=== PATIENT | female | born 1960 ===

== ENCOUNTER 2022-02-13 06:53 | Observation (INO) | payer OTHER ==
[2022-02-13] VITALS (24 sets, daily range): BP systolic 114–145; BP diastolic 68–86
[~2022-02-13] VITALS: Ht 157.5 cm; Wt 85.7 kg
[~2022-02-13 06:53] MED LIST: ASCO100031 PO; CEFAZOLIN SODIUM 1 GM VIAL IVP SCH; CEFAZOLIN SODIUM 2 GM VIAL IV ONE; CELE200 PO; DENO60DI SQ; LACTATED RINGERS 1000ML 1,000 ML IV SCH; LORA10TA7 PO; OMEG1CAP83 PO; ROSU10TA28 PO; TRANEXAMIC ACID 1000MG/10ML IV SCH; TRANEXAMIC ACID 1000MG/10ML TP ONE; k2 PO; tylenol PO
[2022-02-13] MEDS ORDERED: HYDROCODONE/ACETAMINOPHEN 5/325 MG TAB PO PRN (10:30)
[2022-02-13] MEDS: 0.9%NACL 1000ML 1,000 ML IV SCH ×2 (10:30→22:38)
[2022-02-13] MEDS ORDERED: MORPHINE 4 MG SYG IVP PRN (10:30)
[2022-02-13] MEDS ORDERED: ONDANSETRON 4MG INJ IVP PRN (10:30)
[2022-02-13] MEDS ORDERED: ACETAMINOPHEN 500 MG TABLET PO SCH (10:30)
[2022-02-13] MEDS ORDERED: NON-FORMULARY MEDICATION 1 EACH (Denosumab (Prolia) 60 MG) SQ SCH (10:30)
[2022-02-13] MEDS ORDERED: LIDOCAINE HCL-MPF 1% 2ML VIAL IV PRN (10:30)
[2022-02-13] MEDS ORDERED: KCL 20 MEQ ERTAB PO PRN (10:30)
[2022-02-13] MEDS ORDERED: POTASSIUM CHLORIDE 20MEQ/100ML 100 ML IV PRN (10:30)
[2022-02-13] MEDS ORDERED: FERROUS FUMARATE 324 MG TABLET PO PRN (10:30)
[2022-02-13] MEDS: PHARMACY COMMUNICATION MISC SCH ×8 (10:30→17:30)
[2022-02-13] MEDS ORDERED: POTASSIUM CHLORIDE 10% ELIXIR 20 MEQ/15 ML UDCUP PO PRN (10:30)
[2022-02-13] MEDS ORDERED: TRANEXAMIC ACID 1000MG/10ML ONE (10:43)
[2022-02-13] MEDS ORDERED: PROPOFOL 10 MG/ML 20ML VIAL IV ONE (11:20)
[2022-02-13] MEDS ORDERED: MIDAZOLAM HCL 1 MG/ML 2ML VIAL ONE (11:20)
[2022-02-13] MEDS ORDERED: LIDOCAINE PF 100MG/5ML (2%) SYRINGE 5ML ONE (11:20)
[2022-02-13] MEDS ORDERED: SUCCINYLCHOLINE CHLORIDE 20 MG/ML 10 ML VIAL ONE (11:20)
[2022-02-13] MEDS ORDERED: FENTANYL CITRATE PF 50 MCG/1 ML 2ML VIAL ONE ×2 (11:20→12:15)
[2022-02-13] MEDS ORDERED: ROCURONIUM 10MG/1ML SYR 10 MG/ML ML ONE (11:21)
[2022-02-13] MEDS ORDERED: ROPIVACAINE 0.5% 5MG/ML 30ML IJ ONE (11:29)
[2022-02-13] MEDS ORDERED: CEFAZOLIN SODIUM 2 GM VIAL IV ONE (11:40)
[2022-02-13] MEDS ORDERED: EPHEDRINE SULFATE 50 MG/ML AMPULE ONE (11:52)
[2022-02-13] MEDS: TRAMADOL HCL 50 MG TABLET PO SCH ×3 (12:00→22:45)
[2022-02-13] MEDS ORDERED: TRANEXAMIC ACID 1000MG/10ML TP ONE (12:18)
[2022-02-13] MEDS ORDERED: NEOSTIGMINE 5MG/5ML SYR IV ONE (13:36)
[2022-02-13] MEDS ORDERED: GLYCOPYRROLATE 1 MG/5 ML SYRINGE ONE (13:36)
[2022-02-13] MEDS ORDERED: MEPERIDINE-PF 25 MG/ML SYG ONE ×2 (14:10→14:20)
[2022-02-13] MEDS: KETOROLAC 15MG/ML VIAL (15MG/ML) IV PRN (16:44)
[2022-02-13] MEDS: CEFAZOLIN SODIUM 1 GM VIAL IVP SCH ×2 (16:44→22:33)
[2022-02-13] MEDS: FAMOTIDINE 20MG TAB PO SCH (22:31)
[2022-02-13] MEDS: ASPIRIN 81 MG EC TAB PO SCH (22:31)
[2022-02-13] MEDS: ACETAMINOPHEN 500 MG TABLET PO SCH (22:32)
[2022-02-13] MEDS: HYDROCODONE/ACETAMINOPHEN 10/325 MG TAB PO PRN (22:33)
[2022-02-14 04:13] LABS: HEMATOCRIT 38.5 % (36-48); MEAN CORPUSCULAR HEMOGLOBIN 29.1 pg (27.0-33.0); MEAN CORPUSCULAR VOLUME 88.1 fL (79-99); RED BLOOD CELL COUNT(AUTO) 4.37 MIL/uL (4.00-5.50); RED CELL DISTRIBUTION WIDTH 13.6 % (11.0-15.5); WHITE BLOOD COUNT (AUTO) 11.9 K/uL (4.8-10.8)
[2022-02-14 04:36] VITALS: BP 114/67
[2022-02-14 04:39] LABS: CREATININE 0.4 mg/dL (0.5-1.5); POTASSIUM 4.1 mmol/L (3.5-5.1)
[2022-02-14] MEDS: TRAMADOL HCL 50 MG TABLET PO SCH ×4 (06:12→12:56)
[2022-02-14] MEDS: ACETAMINOPHEN 500 MG TABLET PO SCH ×2 (06:12→12:45)
[2022-02-14] MEDS: 0.9%NACL 1000ML 1,000 ML IV SCH (06:30)
[2022-02-14 08:00] VITALS: BP 106/65
[2022-02-14] MEDS ORDERED: POLYETHYLENE GLYCOL 3350 17 GM POWD.PACK PO SCH (09:00)
[2022-02-14] MEDS: ASPIRIN 81 MG EC TAB PO SCH (09:01)
[2022-02-14] MEDS: FAMOTIDINE 20MG TAB PO SCH (09:01)
[2022-02-14] MEDS: HYDROCODONE/ACETAMINOPHEN 10/325 MG TAB PO PRN (10:37)
[2022-02-14 12:00] VITALS: BP 98/63
[2022-02-14] MEDS: KETOROLAC 15MG/ML VIAL (15MG/ML) IV PRN (12:22)
[2022-02-16] MEDS ORDERED: BISACODYL 10 MG SUPP.RECT RC PRN (10:30)
== END 2022-02-14 16:05 | disposition home or self-care (01) ==
LOC: DAH 06:53 → DAHIP 06:54 → 4AH 15:08
PROVIDERS: ADMIT Orthopaedic Surgery; ATTEND Orthopaedic Surgery
DX: M17.12 Unilateral primary osteoarthritis, left knee (principal); Z20.822 Contact with and (suspected) exposure to COVID-19; G89.29 Other chronic pain; M25.562 Pain in left knee; Z79.82 Long term (current) use of aspirin; Z90.710 Acquired absence of both cervix and uterus; Z90.49 Acquired absence of other specified parts of digestive tract; Z79.899 Other long term (current) drug therapy; Z98.890 Other specified postprocedural states
CPT/HCPCS: 27447; S2900; 36415; 64447; 76942; 80048; 85027; 87635; 87641; 96374; 96375; 96376; 97039; C9803; G0378; J0330; J0690; J1885; J2001; J2175; J2250; J2270; J2405; J2704; J2710; J2795; J3010; J3490; J7030; J7120